=== PATIENT | female | born 1985 | race Caucasian/White ===

== ENCOUNTER 2018-09-22 09:17 | Inpatient (IN) | payer BC ==
[2018-09-22] MEDS: Lactated Ringer's 1,000 ML IV SCH ×2 (10:25→15:10)
[2018-09-22] MEDS ORDERED: Diphenoxylate HCl/Atropine Tablet PO PRN ×2 (11:05)
[2018-09-22] MEDS ORDERED: Docusate 100 MG CAP PO PRN (11:05)
[2018-09-22] MEDS ORDERED: Misoprostol 200 MCG TAB PR PRN ×2 (11:05→19:45)
[2018-09-22] MEDS ORDERED: HYDROcodone/Acetaminophen 5/325 mg Tablet PO PRN ×3 (11:05→19:45)
[2018-09-22] MEDS ORDERED: Promethazine HCl 25 MG/ML VIAL IM PRN ×2 (11:05→18:11)
[2018-09-22] MEDS ORDERED: Ondansetron PF 4 MG/2 ML Vial IVP PRN ×3 (11:05→19:45)
[2018-09-22] MEDS ORDERED: Butorphanol Tartrate 1 MG/ML VIAL SLOW IVP PRN (11:05)
[2018-09-22] MEDS ORDERED: Acetaminophen 500 MG TAB PO PRN (11:05)
[2018-09-22] MEDS ORDERED: Zolpidem Tartrate 5 MG TAB PO PRN ×2 (11:05→19:45)
[2018-09-22] MEDS ORDERED: Ibuprofen 800 MG TAB PO PRN (11:05)
[2018-09-22] MEDS ORDERED: Lidocaine 1% (PF) 30 ML VIAL SC PRN (11:05)
[2018-09-22] MEDS ORDERED: NS / Oxytocin 40 units/1000ml 1,000 ML IV PRN (11:05)
[2018-09-22 11:14] VITALS: BMI 43.0
[2018-09-22] MEDS ORDERED: NS w/ Oxytocin 10 units 500 ML IV SCH (11:15)
[2018-09-22 13:08] LABS: Mean Corpuscular HGB CONC 34.5 g/dL (32.0-36.0); Mean Corpuscular Hemoglobin 31.1 pg (27.0-31.0); Mean Corpuscular Volume 90.2 fL (78.0-98.0); Mean Platelet Volume 8.8 fL (7.4-10.4); Platelet Count 255 thou/uL (130-400); RBC Distribution Width 12.7 % (11.5-14.5); Red Blood Cell (RBC) Count 3.85 mill/uL (4.20-5.40); White Blood Cell (WBC) Count 11.5 thou/uL (4.8-10.8)
[2018-09-22 13:51] LABS: HBSAg Index 0.18 S/CO (0-0.99); Hep B Surf Ag Non-Reactive S/CO (NonReactive); Syphilis Antibody Nonreactive (Nonreactive); Syphilis Antibody Index 0.02 S/CO (<1.00 Non-Reactive)
[2018-09-22] MEDS ORDERED: Fentanyl 4 mcg/Bup 0.1% Cadd 100 ML ONE (14:19)
[2018-09-22] MEDS ORDERED: Lidocaine 1.5%/Epinephrine 1:200,000 5 ML AMPUL IJ ONE (14:38)
[2018-09-22] MEDS ORDERED: Penicillin G Potassium 5 MILL.UNITS VIAL ONE (15:35)
[2018-09-22] MEDS ORDERED: Penicillin G Potassium 5 MILL.UNITS in Sodium Chloride 0.9% 100 ML IVPB SCH (16:00)
[2018-09-22] MEDS ORDERED: CEFAZOLIN 2 GM/50 ML BAG ONE (16:32)
[2018-09-22] MEDS ORDERED: Bicitra 30 ML UDCUP ONE (16:33)
[2018-09-22] MEDS ORDERED: Oxytocin 10 UNITS/ML VIAL ONE (16:53)
[2018-09-22] MEDS ORDERED: Ketorolac Tromethamine 30 MG/ML VIAL ONE (16:53)
[2018-09-22] MEDS ORDERED: Ondansetron PF 4 MG/2 ML Vial ONE (16:53)
[2018-09-22] MEDS ORDERED: PHENYLEPHRINE-NS 100 MCG/ML 10 ML SYRINGE ONE (16:53)
[2018-09-22] MEDS ORDERED: Lidocaine 2% MPF 10 ML AMP (For Epidural Use) ONE (16:55)
[2018-09-22] MEDS ORDERED: ePHEDrine/0.9% NaCl/PF SYRINGE 50 mg/10 ml ONE (16:55)
[2018-09-22] MEDS ORDERED: Morphine PF 1 MG/ML SYR ONE (17:58)
[2018-09-22] MEDS ORDERED: HYDROmorphone 2 MG/ML VIAL SLOW IVP PRN (18:11)
[2018-09-22] MEDS ORDERED: Promethazine HCl 25 MG SUPP PR PRN (18:11)
[2018-09-22] MEDS ORDERED: Ondansetron HCl/PF 4 MG/2 ML Vial IVP PRN (18:11)
[2018-09-22] MEDS ORDERED: L&D-Morphine 4 MG/ML VIAL SLOW IVP PRN (18:11)
[2018-09-22] MEDS ORDERED: Meperidine HCl/PF 25 MG/ML VIAL SLOW IVP PRN (18:11)
[2018-09-22] MEDS ORDERED: Ketorolac Tromethamine 30 MG/ML VIAL IVP PRN (18:11)
[2018-09-22] MEDS ORDERED: Naloxone HCl 0.4 mg/ml Vial IV PRN (18:11)
[2018-09-22] MEDS ORDERED: Hydrocerin (Eucerin) Cream 120 gm Jar TOP PRN (18:11)
[2018-09-22] MEDS ORDERED: Naloxone HCl 0.4 mg/ml Vial IVP PRN ×2 (18:11)
[2018-09-22] MEDS ORDERED: diphenhydrAMINE 50 MG/ML VIAL IVP PRN (18:11)
[2018-09-22] MEDS ORDERED: Communication Order-Pharmacy FS SCH (18:15)
[2018-09-22] MEDS ORDERED: Ketorolac Tromethamine 30 MG/ML VIAL IVP SCH (18:15)
[2018-09-22] MEDS ORDERED: Lactated Ringer's 1,000 ML IV SCH (19:45)
[2018-09-22] MEDS ORDERED: Bisacodyl 10 MG SUPP PR PRN (19:45)
[2018-09-22] MEDS ORDERED: Adacel (T-DAP) 0.5 ML SYRINGE IM ONE (19:45)
[2018-09-22] MEDS ORDERED: diphenhydrAMINE 25 MG CAP PO PRN (19:45)
[2018-09-22] MEDS ORDERED: Lanolin Ointment 7 GM TUBE TOP PRN (19:45)
[2018-09-22] MEDS ORDERED: Acetaminophen 325 MG TAB PO PRN (19:45)
[2018-09-22] MEDS ORDERED: Simethicone Chewable 80 MG TAB PO PRN (19:45)
[2018-09-22] MEDS ORDERED: NS / Oxytocin 40 units/1000ml 1,000 ML IV SCH (19:45)
[2018-09-22] MEDS: Penicillin G 2.5 MILL.units 2.5 MILL.UNITS in Premix Bag 1 BAG IVPB SCH (20:00)
[2018-09-23] MEDS: Ibuprofen 800 MG TAB PO SCH ×4 (00:39→22:03)
[2018-09-23] MEDS: Ferrous Sulfate 325 MG TAB PO SCH ×3 (00:57→22:02)
[2018-09-23] MEDS: Docusate Calcium (SURFAK) 240 MG CAP PO SCH ×3 (01:04→22:03)
[2018-09-23] MEDS: Penicillin G 2.5 MILL.units 2.5 MILL.UNITS in Premix Bag 1 BAG IVPB SCH (01:54)
--- NOTE | 2018-09-23 02:14 | OP ---
DATE OF PROCEDURE: 09/22/2018 ATTENDING STAFF PHYSICIAN: Leo Rojas MD. METAPHYSICIST SURGEON: Penelope Lambert MD. PREOPERATIVE DIAGNOSES: 1. Term intrauterine at 37 and 2/7th weeks. 2. Twin gestation. 3. Small for gestational age. 4. Oligohydramnios, twin B. 5. Nonreassuring heart rate tracing. POSTOPERATIVE DIAGNOSES: 1. Term intrauterine at 37 and 2/7th weeks. 2. Twin gestation. 3. Small for gestational age. 4. Oligohydramnios, twin B. 5. Nonreassuring heart rate tracing. PROCEDURE PERFORMED: Primary low-transverse section. ANESTHESIA: Epidural catheterization. FINDINGS: 1. Twin gestation, diamnion and dichorion. 2. Lag in growth with bilateral SGA. 3. Twin B, oligohydramnios. 4. Twin A, vigorous female, 5 pounds 2 ounces; twin B, vigorous male, 4 pounds 14 ounces (Apgars pending). 5. Asymmetry of placenta with 60% to twin A, 40% twin B. COMPLICATIONS: None. SPECIMENS REMOVED: 1. Cord blood. 2. Placenta to Pathology. BLOOD LOSS: Approximately 600 mL (QBL 590 mL). HISTORY AND INDICATIONS: Mrs. Ning Perez is a very pleasant 33-year-old white female, 2, para 0-0-1-0 who is from our clinic for obstetric care. Her was complicated by twin gestation with no problems or complications until approximately 34 weeks at which we began to identify some growth restriction. testing was initiated with weekly ultrasounds for growth, nonstress test, and fluid measurement. She presented to the office this morning for a routine OB visit with repeat ultrasound and nonstress test. There was no interval growth noted on ultrasound and twin B was noted to be oligohydramnios with an MARK of 4.9 cm. Because of the bilateral SGA and decreased fluid with twin B, decision was made to proceed with delivery. The patient was sent to Labor and Delivery at [place] for medical induction and contraction stress test. We passed the contraction stress test and amniotomy was performed on the afternoon of 09/22/2018. Shortly thereafter, periodic changes were noted with several episodes of bradycardia which responded to conservative measures. The patient was noted to be 5 cm dilated, 90% effaced, and 0 station with twin A, the presenting baby. We tried several times to resume the induction with Pitocin without encountering and nonreassuring heart rate tracing. The Pitocin was discontinued and the decision was made to proceed with primary delivery. The patient and her had been extensively counselled and surgical disclosures were signed and placed in the chart. Questions were answered to the patient and family's satisfaction. DESCRIPTION OF PROCEDURE: After thorough consent and counseling, Mrs. Perez was taken to the operating room and an adequate level of anesthesia was obtained via epidural catheterization which was already in place. The patient was prepped and draped in usual sterile fashion for abdominal surgery. A Javier was in the bladder and noted to be draining clear urine. Attention was then turned performing the primary low transverse section. A Pfannenstiel incision was made, carried sharply to the fascia, which was also sharply incised. The midline was identified and the rectus muscles were retracted laterally. The abdominoperitoneal cavity was entered with usual safeguards carried out. A retractor was placed and a bladder flap was created on the vesicouterine peritoneum. A low-transverse incision was made on the well-developed lower uterine segment. Upon entering the amniotic sac of twin A, a small amount of clear amniotic fluid was visualized. The was noted to be vertex presentation in the occiput anterior position deep in the pelvis. Head was carefully delivered in an atraumatic fashion. Shoulders and body were then delivered. The cord was double clamped and cut and the infant was handed to the Neonatology Team in attendance for the delivery. Twin A was a vigorous viable female weighing 5 pounds and 2 ounces. Amniotomy was then performed on the sac of twin B and scant amount of clear amniotic fluid was visualized. Twin B was also noted to be vertex presentation in the occiput anterior position. Head was delivered and baby was bulb suctioned on the abdomen. Shoulders and body were also delivered in an atraumatic fashion. The cord was doubly clamped and cut and the was handed to the second Neonatology Team. B was a vigorous male, weighing 4 pounds and 14 ounces with both Apgars still pending. Cord blood was obtained. The placenta was manually removed from the uterus. Asymmetry of the placenta was noted and we sent pathology for evaluation. It appears that the portion of twin A's placenta was significantly larger measuring approximately 60% with B having approximately 40%. Twin B was also noted to have a short cord. The uterus was exteriorized and good tone was noted. The uterine cavity was cleared of any remaining clot and fluid. The low-transverse incision was closed in running locking ligature of #1 chromic. A second imbricating layer was placed to facilitate strengthened hemostasis. The vesicouterine peritoneum was reapproximated with a running ligature of 2-0 Monocryl suture. The posterior cul-de-sac and gutters were cleared of clot and fluid. The uterus, fallopian tubes, and ovaries were noted to be normal in appearance. Seprafilm was applied to the low-transverse incision and to the anterior aspect of the uterus for adhesion prevention. The uterus was returned to the abdomen and the incision was carefully inspected and noted to be hemostatic. Lap, sponge, and needle counts were correct. The peritoneum was then closed with running ligature of 2-0 Vicryl suture. The rectus muscles were reapproximated in the midline with [id number] ligatures of both 2-0 Vicryl suture and #1 chromic suture. Good muscle reapproximation was appreciated. The fascia was closed with 2 ligatures of 0 Vicryl suture which were tied in the midline. Good fascial integrity was appreciated. The incision was irrigated with copious amount of warm normal saline. The subcutaneous tissue was closed with interrupted ligature of 2-0 plain. The skin was closed with subcuticular stitch of 4-0 Monocryl and dressed with Dermabond. Lab, sponge, and needle counts were correct x3. The estimated blood loss during the surgical procedure was approximately 600 mL (QBL equal 590 mL). The patient was taken to recovery room in good condition. Immediately following the surgery, the patient and family were made aware of the surgical procedure and operative findings. Questions answered to their satisfaction. Job ID: [id number]
[2018-09-23] MEDS ORDERED: Meperidine HCl/PF 25 MG/ML VIAL IM PRN (06:15)
[2018-09-23] MEDS ORDERED: HYDROcodone/Acetaminophen 5/325 mg Tablet PO PRN ×2 (06:15)
[2018-09-23 07:01] LABS: Hemoglobin 9.1 g/dL (12.0-16.0); Mean Corpuscular HGB CONC 34.2 g/dL (32.0-36.0); Mean Corpuscular Hemoglobin 30.9 pg (27.0-31.0); Mean Corpuscular Volume 90.4 fL (78.0-98.0); Mean Platelet Volume 8.4 fL (7.4-10.4); Platelet Count 209 thou/uL (130-400); RBC Distribution Width 12.7 % (11.5-14.5); Red Blood Cell (RBC) Count 2.94 mill/uL (4.20-5.40); White Blood Cell (WBC) Count 13.4 thou/uL (4.8-10.8)
[2018-09-23] MEDS: HYDROcodone/Acetaminophen 5/325 mg Tablet PO PRN ×3 (09:52→20:17)
[2018-09-23] MEDS: Prenatal Vitamin 1 TAB PO SCH (09:52)
[2018-09-23] MEDS ORDERED: Bupivacaine/Epinephrine 0.25% 30 ML VIAL ONE (12:51)
[2018-09-23] MEDS ORDERED: Lidocaine 2% MPF 10 ML AMP (For Epidural Use) ONE (12:51)
[2018-09-24] MEDS: HYDROcodone/Acetaminophen 5/325 mg Tablet PO PRN ×2 (02:11→19:36)
[2018-09-24] MEDS: Ibuprofen 800 MG TAB PO SCH ×3 (05:35→21:48)
[2018-09-24] MEDS: Docusate Calcium (SURFAK) 240 MG CAP PO SCH ×2 (08:29→21:49)
[2018-09-24] MEDS: Ferrous Sulfate 325 MG TAB PO SCH ×2 (08:29→21:49)
[2018-09-24] MEDS: Prenatal Vitamin 1 TAB PO SCH (08:29)
[2018-09-25] MEDS: Ibuprofen 800 MG TAB PO SCH ×3 (05:22→22:03)
[2018-09-25] MEDS: Ferrous Sulfate 325 MG TAB PO SCH ×2 (10:40→22:03)
[2018-09-25] MEDS: Docusate Calcium (SURFAK) 240 MG CAP PO SCH ×2 (10:40→22:02)
[2018-09-25] MEDS: Prenatal Vitamin 1 TAB PO SCH (10:40)
[2018-09-26] MEDS: Ibuprofen 800 MG TAB PO SCH ×2 (06:40→14:26)
[2018-09-26] MEDS: Docusate Calcium (SURFAK) 240 MG CAP PO SCH (09:04)
[2018-09-26] MEDS: Prenatal Vitamin 1 TAB PO SCH (09:04)
[2018-09-26] MEDS: Ferrous Sulfate 325 MG TAB PO SCH (09:04)
[2018-09-26 09:09] VITALS: BP 137/83; TEMP 98
== END 2018-09-26 17:30 | disposition home or self-care (01) | DRG 787 ==
LOC: L&D 09:17 → 3SE 21:31
PROVIDERS: ADMIT Obstetrics & Gynecology; ATTEND Obstetrics & Gynecology
PROC: 10D00Z1 Extraction of Products of Conception, Low, Open Approach (ICD-10-PCS; principal; 2018-09-22)
PROC: 10907ZC Drainage of Amniotic Fluid, Therapeutic from Products of Conception, Via Natural or Artificial Opening (ICD-10-PCS; 2018-09-22)
PROC: 3E033VJ Introduction of Other Hormone into Peripheral Vein, Percutaneous Approach (ICD-10-PCS; 2018-09-22)
DX: O30.043 Twin pregnancy, dichorionic/diamniotic, third trimester (principal); O41.03X2 Oligohydramnios, third trimester, fetus 2; O36.5931 Maternal care for other known or suspected poor fetal growth, third trimester, fetus 1; O36.5932 Maternal care for other known or suspected poor fetal growth, third trimester, fetus 2; O43.893 Other placental disorders, third trimester; O76 Abnormality in fetal heart rate and rhythm complicating labor and delivery; Z3A.37 37 weeks gestation of pregnancy; Z37.2 Twins, both liveborn
CPT/HCPCS: 36415; 51702; 76815; 85027; 86780; 86850; 86900; 86901; 87340; 88307; J1885; J2001; J2274; J2405; J2540; J2590; J3490